=== PATIENT | male | born 2000 | race Caucasian/White ===

== ENCOUNTER 2022-01-04 12:34 | Outpatient (CLI) | payer BC, SELFPAY ==
--- NOTE | ~2022-01-04 | US_ITS ---
US right upper quadrant INDICATION: Abdominal pain PROCEDURE: Realtime right upper abdominal ultrasound. COMPARISON: No prior studies for comparison. FINDINGS: The pancreas is normal without focal mass or pancreatic ductal dilation. Liver echotexture is normal without focal mass or intrahepatic biliary dilatation. There is normal directional flow i n the portal vein. There are multiple gallbladder polyps. Largest polyp measures 4 mm. Common bile duct measures 2 mm. No sonographic Harris's sign. IMPRESSION: 1: Gallbladder polyps. Reviewed, dictated and finalized at location B. IMPRESSION: 1: Gallbladder polyps.
== END 2022-01-04 12:35 | disposition home or self-care (01) ==
LOC: CHSIMG 12:37
PROVIDERS: PCP Family Medicine; Visit Provider Family Medicine
DX: R10.84 Generalized abdominal pain (principal)
CPT/HCPCS: 76705

== ENCOUNTER 2022-02-21 07:51 | Outpatient (CLI) | payer BC, SELFPAY ==
--- NOTE | ~2022-02-21 | NM_ITS ---
EXAMINATION: NM hepatobiliary wo pharm DATE: 02/21/2022 10:41 INDICATION: Right upper quadrant abdominal pain. COMPARISON: Ultrasound 01/04/2022 TECHNIQUE: 4.52 mCi Tc-99m mebrofenin (Choletec) was administered intravenously. Scintigraphic image s of the abdomen were obtained for one hour. Then, the patient drank 8 oz Ensure, and imaging was con tinued for 60 minutes. FINDINGS: There is normal clearance of radiotracer from the blood pool. There is homogeneous tracer u ptake by the liver. Activity progresses to the bowel and gallbladder. Gallbladder ejection fraction (GBEF) was 53%. Note that with this technique, normal GBEF >= 33%. IMPRESSION: 1. Normal hepatobiliary scintigraphy. Reviewed, dictated and finalized at location B.
== END 2022-02-21 07:52 | disposition home or self-care (01) ==
LOC: ANHIMG 07:57
PROVIDERS: PCP Family Medicine; Visit Provider Nurse Practitioner Family
DX: R10.11 Right upper quadrant pain (principal)
CPT/HCPCS: 78226; A9537

== ENCOUNTER 2022-12-16 15:16 | Emergency (ER) | payer BC, SELFPAY ==
[2022-12-16] VITALS (16 sets, daily range): BP systolic 127–167; BP diastolic 71–94; PULSE 97–178; RESP 11–28; TEMP 37.1; O2SAT 91–100
--- NOTE | 2022-12-16 15:25 | ECG_ITS ---
Measurements Intervals [place] Rate: 131 P: 79 RI: 132 QRS: 7 QRSD: 85 T: 64 QT: 290 QTc: 429 Interpretive Statements SINUS TACHYCARDIA OTHERWISE NORMAL eCG NO PREVIOUS ECG AVAILABLE FOR COMPARISON Electronically Signed On 12-16-2022 15:46:06 [employer] by Cesar Houston M.D.
--- NOTE | 2022-12-16 15:29 | ED.ARRPALP ---
HPI - Arrhythmia/Palpitations General Chief Complaint: Chest Pain Stated Complaint: high heart rate; dizzy; nauseous Time Seen by Provider: 12/16/22 15:29 Source: patient and RN notes reviewed Mode of arrival: ambulatory Limitations: no limitations History of Present Illness HPI narrative: patient states that he began having rapid heartbeat a few hours prior to his arrival. He says this happens sometimes after he takes his methylphenidate. He thinks he may have accidentally taken 2 doses of the methylphenidate today. He also states he has not eaten in the last 2 days. States he has been drinking fluids. With this he has been having some dizziness and some nausea with dizziness. MD complaint: heart racing Onset (ago): hour(s) (2) Severity: moderate Context: occurred during rest Associated symptoms: denies other symptoms Related Data Home Medications Medication Instructions Recorded Confirmed methylphenidate HCl 40 mg 40 mg PO DAILY 12/16/22 12/16/22 capsule,extended release (40-60) sprinkle Allergies Allergy/AdvReac Type Severity Reaction Status Date / Time No Known Allergies Allergy Unverified 02/07/22 13:02 [facility] Past Medical History Medical History (Updated 12/16/22 @ 17:05 by Rick Black MD) ADHD (attention deficit hyperactivity disorder) Anxiety Asthma Gallbladder polyp GERD (gastroesophageal reflux disease) Hyperglycemia Right upper quadrant pain Social History Social History (Updated 02/07/22 @ 13:06 by Lona Carr MA) Smoking status: Never smoker Second hand tobacco smoke exposure: No Alcohol intake: current Alcohol use details: social Substance use: never Living arrangements: with family Exam Const: General: healthy appearing, no acute distress and alert Nutritional Appearance: well nourished and thin Orientation/consciousness: patient oriented x3 Limitations: no limitations HENMT: Head: normal to inspection Ears: external ears normal Face/Nose/Sinus: Normal external nose present Face and sinus: normal facial exam Mouth: Yes moist mucous membranes Eyes: Conjunctivae: conjunctivae normal Pupils: Equal, round and reactive pupils present EOM: EOMs intact bilaterally Neck: Neck: normal visual inspection Resp: Effort & Inspection: normal respiratory effort Auscultation: clear to auscultation bilaterally Cardio: Rate: tachycardic Rhythm: regular rhythm GI: GI Palp: Yes Soft to palpation and No Tenderness to palpation present (GI) Auscultation: normal bowel sounds Back/Spine/Pelvis: Cervical Spine: cervical ROM normal Thoracic/Lumbar Spine: thoraco-lumbar ROM normal Skin: General skin exam: normal color Rashes: no rashes Neuro: General: patient oriented x3, moves all extremities, no focal motor deficits and CN's II-XI intact bilaterally Speech: normal speech Gait exam (Neuro): Normal gait present Extrem: General: normal to inspection and no clubbing, cyanosis or edema Psych: Mental Status: mental status grossly normal Affect: normal affect Attitude: cooperative Course Course Emergency Course: Patient given labetalol 10 mg IV push. His heart rate improved sometimes under 100 most the time in the 110's. Patient feels much better. Vital Signs Vital signs: Vital Signs Temperature 37.1 C 12/16/22 15:16 Pulse Rate 168 H 12/16/22 15:16 Respiratory Rate 20 12/16/22 15:16 Blood Pressure 167/94 H 12/16/22 15:16 Pulse Oximetry 98 12/16/22 15:16 Oxygen Delivery Room Air 12/16/22 15:16 Temperature 37.1 C 12/16/22 17:19 Pulse Rate 109 H 12/16/22 17:19 Respiratory Rate 19 12/16/22 17:19 Blood Pressure 129/74 12/16/22 17:19 Pulse Oximetry 98 12/16/22 17:19 Oxygen Delivery Room Air 12/16/22 17:19 MDM - Arrhythmia/Palpitations MDM Narrative Medical decision making narrative: I also considered electrolyte abnormality, anemia, infectious process, accidental drug use. Differential Diagnosis Differ
[2022-12-16] MEDS: LABETALOL HCL INJ 100 MG/20 ML VIAL 10 MG IV PUSH (15:48)
[2022-12-16 16:03] LABS: Basophils Absolute Auto 0.04 K/mm3 (0.00-0.10); Basophils Percent Auto 0.6 % (0.0-1.0); Hematocrit 43.6 % (40.0-54.0); Hemoglobin 15.6 g/dL (14.0-18.0); Immature Granulocyte Absolute 0.01 K/mm3 (0.00-0.00); Immature Granulocyte Percent A 0.1 % (0.0-0.0); Lymphocytes Absolute Auto 1.04 K/mm3 (1.10-4.50); Lymphocytes Percent Auto 15.2 % (18.0-42.0); Mean Corpuscular HGB Conc 35.8 g/dL (32.0-36.0); Mean Corpuscular Hemoglobin 31.8 pg (27.0-31.0); Mean Platelet Volume 9.1 fl (8.7-11.0); Monocytes Absolute Auto 0.24 K/mm3 (0.10-0.90); Monocytes Percent Auto 3.5 % (2.0-11.0); Neutrophils Absolute Auto 5.5 K/mm3 (1.7-7.2); Neutrophils Percent Auto 80.6 % (50.0-70.0); Platelet Count Result 306 K/mm3 (150-420); Red Cell Distribution Width 11.7 % (11.6-14.4); White Blood Count 6.9 K/mm3 (4.8-10.8)
[2022-12-16 16:19] LABS: CRP < 0.5 mg/dL (0.0-0.9)
[2022-12-16 16:27] LABS: Alanine Aminotransferase 18 U/L (16-63); Albumin Level 4.8 g/dL (3.4-5.0); Alkaline Phosphatase 85 U/L (46-116); Anion Gap 14 mmol/L (8-16); Aspartate Amino Transferase 24 U/L (15-37); Bilirubin,Total 1.1 mg/dL (0.00-1.00); Blood Urea Nitrogen 9 mg/dL (7-18); Calcium 9.8 mg/dL (8.5-10.1); Carbon Dioxide 27 mmol/L (21-32); Chloride 101 mmol/L (98-108); Estimated Glomerular Filt Rate > 60; Glucose 105 mg/dL (70-99); Magnesium 1.6 mg/dL (1.8-2.4); Osmolality Calculated 292 mOsm/kg (285-295); Potassium 3.4 mmol/L (3.5-5.1); Sodium 142 mmol/L (136-145); Thyroid Stimulating Hormone 1.04 uIU/mL (0.36-3.74); Total Protein 8.1 g/dL (6.4-8.2); Troponin I 6.3 ng/L (0.00-60.4)
[2022-12-16 16:53] LABS: Amphetamine Screen Urine Negative (Negative); Barbiturate Screen Urine Negative (Negative); Benzodiazepines Screen Urine Negative (Negative); Cannabinoid Screen Urine Negative (Negative); Cocaine Screen Urine Negative (Negative); Methadone Screen Urine Negative (Negative); Opiate Screen Urine Negative (Negative); Phencyclidine Screen Urine Negative (Negative)
== END 2022-12-16 17:20 | disposition home or self-care (01) ==
PROVIDERS: Emergency Provider Emergency Medicine; PCP Family Medicine
DX: R00.0 Tachycardia, unspecified (principal); E87.6 Hypokalemia; E83.42 Hypomagnesemia; F90.9 Attention-deficit hyperactivity disorder, unspecified type; Z79.899 Other long term (current) drug therapy
CPT/HCPCS: 36415; 80053; 80307; 83735; 84443; 84484; 85025; 86140; 93005; 96374; 99284

== ENCOUNTER 2022-12-23 10:06 | Outpatient (CLI) | payer BC, SELFPAY ==
--- NOTE | 2023-01-23 12:37 | WPDHOLTEREM ---
Holter/Event Monitor Holter/Event Monitor Date of procedure: 12/23/22 Holter/Event Procedure: Event Monitor Indications: Tachycardia Conclusion: 1. 28 days event monitor between 12/23/22-01/21/23. There are 39 available transmissions for analysis. 2. Underlying rhythm is sinus rhythm. HR range 36-200 bpm; average HR 80 bpm. HR at 36 bpm was on 12/25/22 at 13:38; HR at 200 bpm was on 01/14/23 at 04:02. 3. There are occasional premature supraventricular complexes with total burden of 1%. HR at 200 bpm on 01/14/23 is either sinus tachycardia or atrial tachycardia. 4. There are occasional premature ventricular complexes with total burden of <1%. No ventricular tachycardia. 5. There are 2 pauses greater than 2 seconds with longest being a sinus bradycardia at 3.0 seconds due to marked sinus arrhythmia on 12/24/22 at 11:06 and one was at 2.6 seconds pause due to marked sinus arrhythmia on 12/25/22 at 13:38. 6. Patient reports 6 episodes of symptoms of chest pain and symptom other than listed which demonstrate sinus rhythm, HR range 56-117 bpm.
== END 2022-12-23 10:07 | disposition home or self-care (01) ==
LOC: CHSCARD 10:08
PROVIDERS: PCP Family Medicine; Visit Provider Family Medicine
DX: R00.0 Tachycardia, unspecified (principal)
CPT/HCPCS: 93270

== ENCOUNTER 2023-02-23 17:27 | Emergency (ER) | payer BC, SELFPAY ==
--- NOTE | ~2023-02-23 | XR_ITS ---
EXAMINATION: XR chest 2V Exam Date/Time: 02/23/2023 18:00 CDT HISTORY: INTERMITTENT RIGHT SIDED CHEST PAIN 2 MONTHS. NO CARDIAC HX. Comparison: None available. RESULT: Lines, tubes, and devices: None. Lungs and pleura: Clear. Cardiomediastinal silhouette: Normal. Other: No acute osseous or upper abdominal finding. IMPRESSION: No acute cardiopulmonary process. Reviewed, dictated and finalized at location K.
--- NOTE | 2023-02-23 17:28 | ECG_ITS ---
Measurements Intervals [place] Rate: 81 P: 75 CO: 138 QRS: -5 QRSD: 84 T: 67 QT: 334 QTc: 388 Interpretive Statements SINUS RHYTHM WITH SINUS ARRHYTHMIA BASELINE ARTIFACT- II, III, AVF NORMAL ECG COMPARED TO ECG 12/16/2022 15:43:54 SINUS RHYTHM NOW PRESENT SINUS ARRHYTHMIA NOW PRESENT Electronically Signed On 02-23-2023 18:48:56 CDT by Iftikhar Corrales D.O.
[2023-02-23 17:35] VITALS: BP 143/98; PULSE 78; PULSE 92; RESP 20; TEMP 37.3; O2SAT 100
[2023-02-23 18:02] LABS: Basophils Absolute Auto 0.04 K/mm3 (0.00-0.10); Basophils Percent Auto 0.8 % (0.0-1.0); Eosinophils Absolute Auto 0.03 K/mm3 (0.02-0.50); Eosinophils Percent Auto 0.6 % (1.0-6.0); Hematocrit 45.3 % (40.0-54.0); Hemoglobin 16.5 g/dL (14.0-18.0); Immature Granulocyte Absolute 0.01 K/mm3 (0.00-0.00); Immature Granulocyte Percent A 0.2 % (0.0-0.0); Lymphocytes Percent Auto 32.9 % (18.0-42.0); Mean Corpuscular HGB Conc 36.4 g/dL (32.0-36.0); Mean Platelet Volume 9.3 fl (8.7-11.0); Monocytes Absolute Auto 0.33 K/mm3 (0.10-0.90); Monocytes Percent Auto 6.4 % (2.0-11.0); Neutrophils Absolute Auto 3.1 K/mm3 (1.7-7.2); Neutrophils Percent Auto 59.1 % (50.0-70.0); Platelet Count Result 291 K/mm3 (150-420); Red Blood Count 5.15 M/mm3 (4.70-6.10); Red Cell Distribution Width 11.1 % (11.6-14.4); White Blood Count 5.2 K/mm3 (4.8-10.8)
[2023-02-23 18:16] LABS: Partial Thromboplastin Time 29.9 SEC (23.90-30.70)
[2023-02-23 18:24] LABS: Alanine Aminotransferase 18 U/L (16-63); Albumin Level 4.7 g/dL (3.4-5.0); Alkaline Phosphatase 66 U/L (46-116); Anion Gap 11 mmol/L (8-16); Aspartate Amino Transferase 17 U/L (15-37); Blood Urea Nitrogen 8 mg/dL (7-18); Calcium 9.3 mg/dL (8.5-10.1); Carbon Dioxide 28 mmol/L (21-32); Chloride 103 mmol/L (98-108); Estimated CRCL calculation 106 ml/min; Estimated Glomerular Filt Rate > 60; Glucose 103 mg/dL (70-99); Lipase 39 U/L (16-77); NT Pro B Type Natriuretic Pept 19 pg/mL (0-125); Osmolality Calculated 292 mOsm/kg (285-295); Sodium 142 mmol/L (136-145); Total Protein 7.9 g/dL (6.4-8.2); Troponin I 4.6 ng/L (0.00-60.4)
[2023-02-23 18:28] LABS: D Dimer 0.19 mg/L (0.19-0.50)
--- NOTE | 2023-02-23 18:32 | ED.CHESTPAIN ---
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 Patient has been on methylphenidate but currently has been discontinue that denies smoking there is no history of energy drinks had a workup including a thyroid study which was normal. Currently the patient is comfortable chest pain is resolved at this point with no shortness of breath no abdominal pain no epigastric pain no fever chills. complaint: chest pain Onset (ago): hour(s) Timing of current episode: episodic Onset: during rest Related Data Home Medications Medication Instructions Recorded Confirmed Unable to Obtain Home Medications 02/23/23 02/23/23 Allergies Allergy/AdvReac Type Severity Reaction Status Date / Time No Known Allergies Allergy Verified 02/23/23 17:43 Review of Systems Review of Systems: All systems reviewed & are unremarkable except as noted in HPI and below PMFSH Past Medical History Medical History ADHD (attention deficit hyperactivity disorder) Anxiety Asthma Gallbladder polyp GERD (gastroesophageal reflux disease) Hyperglycemia Right upper quadrant pain Social History Social History Smoking status: Never smoker Second hand tobacco smoke exposure: No Alcohol intake: current Alcohol use details: social Substance use: never Living arrangements: with family Exam Const: General: cooperative, healthy appearing and comfortable Nutritional Appearance: well nourished Orientation/consciousness: oriented to person HENMT: Head: normal to inspection Ears: hearing grossly normal bilaterally Face/Nose/Sinus: Normal external nose present Face and sinus: normal facial exam Mouth: Yes Normal oral and palatal mucosa present Throat: posterior oropharynx normal Eyes: General: appearance normal, both eyes and all related structures Visual May: normal visual may by confrontation Periorbital: periorbital findings normal Neck: Neck: normal visual inspection, full ROM and no lymphadenopathy Chest: Chest palpation & inspection: normal inspection of the chest and normal palpation of entire chest wall Resp: Effort & Inspection: normal respiratory effort and able to speak in complete sentences Auscultation: clear to auscultation bilaterally Cardio: Jugular venous distension: no JVD Palpation: normal PMI Rate: regular rate Rhythm: regular rhythm Heart sounds: S1 normal heart sound present and S2 normal heart sound present GI: Inspection: normal to inspection : General: Yes bimanual renal exam normal bilaterally Skin: General skin exam: normal color and no rashes or lesions noted Neuro: General: oriented to person, oriented to place and oriented to time Extrem: General: normal to inspection, full ROM and capillary refill normal Psych: Appearance: grossly normal Mental Status: mental status grossly normal Speech and movement: Normal speech and movement present Course Course Emergency Course: EKG chest x-ray and blood work reviewed with patient and family reassured patient that he is not having a cardiac event and advised to continue his regular follow-up with his ballet teacher. Vital Signs Vital signs: Vital Signs Temperature 37.3 C 02/23/23 17:35 Pulse Rate 92 02/23/23 17:35 Respiratory Rate 20 02/23/23 17:35 Blood Pressure 143/98 H 02/23/23 17:35 Pulse Oximetry 100 02/23
[2023-02-23 18:46] VITALS: BP 134/82; PULSE 76; RESP 18; TEMP 37.3; O2SAT 100
== END 2023-02-23 18:48 | disposition home or self-care (01) ==
PROVIDERS: Emergency Provider Emergency Medicine; PCP Family Medicine
DX: R07.89 Other chest pain (principal)
CPT/HCPCS: 36415; 71046; 80053; 83690; 83880; 84484; 85025; 85380; 85610; 85730; 93005; 99284

== ENCOUNTER 2024-09-16 14:00 | Outpatient (CLI) | payer BC, SELFPAY ==
--- NOTE | ~2024-09-16 | US_ITS ---
TESTICULAR ULTRASOUND (Doppler ultrasound interrogation techniques used as needed for this exam.) Ordering provider: Josue Jimenez MD History: . Scrotal pain . Comparison: None. FINDINGS: TESTICLES: Normal in size. The right measures 4x 2.4x 2.5 cm and the left measures 4x 2.2x 2.1 cm. No rmal echogenicity bilaterally without mass lesion. Normal Doppler flow bilaterally. EPIDIDYMIDES: Normal in size. The right measures 0.6 cm and the left 0.8 cm. Normal echogenicity bila terally. Both demonstrate normal Doppler flow. HYDROCELE: None. VARICOCELE: None. OTHER ABNORMALITY: None seen. IMPRESSION: normal testicular ultrasound. Reviewed, dictated and finalized at location A. [place] [place]
== END 2024-09-16 14:01 | disposition home or self-care (01) ==
LOC: CHSIMG 14:01
PROVIDERS: PCP Family Medicine; Visit Provider Family Medicine
DX: N50.82 Scrotal pain (principal)
CPT/HCPCS: 76870; 93976